=== PATIENT | female | born 1935 | race Caucasian/White ===

== ENCOUNTER → 2016-10-13 | Outpatient (CLI) | payer MEDICARE, OTHER, BC ==
--- NOTE | 2016-10-13 10:30 | REP ---
Right upper quadrant sonography: History: Weight loss. History of bladder carcinoma. Right upper quadrant pain. Nausea. Findings: Scanning through the right upper quadrant of the abdomen demonstrates normal sized slightly thick-walled gallbladder without visible stone or polyp. There is mild tenderness to scanning over the gallbladder. Gallbladder wall measures up to 0.4 cm. Common bile duct is at the upper range of normal measuring 0.7 cm in diameter. No focal liver lesion or intrahepatic biliary ductal dilation is seen. There is mild ascites visible in the right flank. No right renal abnormality is seen. The right kidney measures 9.0 x 5.5 x 4.0 cm. Pancreas shows no abnormality. The pancreatic tail is obscured by abdominal gas. Impression: Mild right-sided ascites seen. Mild thickening and tenderness to scanning of the gallbladder. No stones seen. Otherwise unremarkable. Pancreas is partially obscured by abdominal gas. Consider abdominal and pelvic CT scanning. Signed by Berlin Koo MD 10/13/2016 02:31 P
== END ==
LOC: M RAD 09:11
PROVIDERS: ATTEND Nurse Practitioner Adult Health
DX: R10.11 Right upper quadrant pain (principal); Z85.51 Personal history of malignant neoplasm of bladder; R18.8 Other ascites

== ENCOUNTER → 2016-10-21 | Outpatient (REF) | payer MEDICARE, OTHER ==
[2016-10-21 15:47] LABS: MEAN CORPUSCULAR HEMOGLOBIN 29.6 pg (27.0-33.0); MEAN CORPUSCULAR HGB CONC 32.6 g/dl (32.0-36.5); MEAN CORPUSCULAR VOLUME 90.9 fl (80.0-96.0); RED CELL DISTRIBUTION WIDTH 13.8 % (11.5-14.5); WHITE BLOOD COUNT 14.4 K/mm3 (4.0-10.0)
[2016-10-21 16:06] LABS: BILIRUBIN,TOTAL 0.8 MG/DL (0.2-1.0); CALCIUM LEVEL 8.9 MG/DL (8.8-10.2); CREATININE FOR GFR 2.23 MG/DL (0.55-1.02); GLOMERULAR FILTRATION RATE 22.4 (>32); POTASSIUM SERUM 3.6 MEQ/L (3.5-5.1)
[2016-10-21 16:07] LABS: ALBUMIN 3.2 GM/DL (3.2-5.2); ALBUMIN/GLOBULIN RATIO 1.14 (1.00-1.93)
== END ==
LOC: M SFHCPLAZ 12:56
PROVIDERS: ATTEND Internal Medicine

== ENCOUNTER → 2016-10-22 | Outpatient (CLI) | payer MEDICARE, OTHER, BC ==
[~2016-10-22] MED LIST: GASTROGRAFIN SOLUTION 30ML (Q9963) As Ordered ONE; ISOVUE-370 76% 100ML VIAL (Q9967) As Ordered ONE
--- NOTE | 2016-10-22 14:43 | REP ---
[address] abdomen pelvis without IV contrast. Bowel contrast is utilized. Comparison is the abdominal right upper quadrant ultrasound 10/13/2016. The visualized lung barron are unremarkable. There is ascites surrounding the liver and spleen, in the colic gutters bilaterally and in the pelvis. The unenhanced hepatic parenchyma is homogeneous. The gallbladder is unremarkable. The head, body and tail of the pancreas are unremarkable. Spleen is normal size unremarkable. The adrenals and kidneys are unremarkable except for a 2 cm left renal cyst. The abdominal aorta is unremarkable. There is no retroperitoneal adenopathy. There is no bowel distension or obstruction. Pelvis: There is a calcification in the uterus likely within a degenerating fibroid. The bladder is nondistended and cannot be evaluated. No pelvic adenopathy is identified. There is pelvic ascites as described previously. The pelvic bowel loops are unremarkable except for occasional diverticula in the descending colon and sigmoid colon without CT evidence of diverticulitis. There are no lytic, blastic or destructive skeletal changes. There is multilevel degenerative disc disease in the lower thoracic and lumbar spine. Impression: Abdominal ascites throughout the entire abdomen. No adenopathy or mass. The bladder is nondistended and cannot be evaluated. No evidence of skeletal metastatic disease. Left renal cyst. Signed by Eric Daniels MD 10/22/2016 02:34 P
== END ==
LOC: M RAD 11:43
PROVIDERS: ATTEND Nurse Practitioner Adult Health
DX: R18.8 Other ascites (principal); N28.1 Cyst of kidney, acquired; R93.5 Abnormal findings on diagnostic imaging of other abdominal regions, including retroperitoneum; Z85.51 Personal history of malignant neoplasm of bladder
CPT/HCPCS: 74176; Q9963

== ENCOUNTER → 2016-10-29 | Outpatient (REF) | payer MEDICARE, OTHER ==
[2016-10-29 14:17] LABS: INR 1.13
[2016-10-29 14:24] LABS: ALBUMIN 3.3 GM/DL (3.2-5.2); ALBUMIN/GLOBULIN RATIO 1.1 (1.00-1.93); BILIRUBIN,TOTAL 0.7 MG/DL (0.2-1.0); CALCIUM LEVEL 8.8 MG/DL (8.8-10.2); CREATININE FOR GFR 2.01 MG/DL (0.55-1.02); GLOMERULAR FILTRATION RATE 25.2 (>32); POTASSIUM SERUM 3.5 MEQ/L (3.5-5.1); TOTAL PROTEIN 6.3 GM/DL (6.4-8.2)
== END ==
LOC: M SFHCPLAZ 12:52
PROVIDERS: ATTEND Internal Medicine
DX: Z85.51 Personal history of malignant neoplasm of bladder (principal); I10 Essential (primary) hypertension; I25.10 Atherosclerotic heart disease of native coronary artery without angina pectoris

== ENCOUNTER → 2016-11-02 | Outpatient (CLI) | payer MEDICARE, OTHER ==
[2016-11-02 14:42] LABS: LDH, BODY FLUID 135 U/L (NOT ESTABLISHED)
[2016-11-02 14:44] LABS: RBC ASCITES FLUID < 10 (<10mm3 cells/uL); TNC ASCITES FLUID 367 cells/uL (0-20)
[2016-11-02 14:45] LABS: BF DIFF IF INDICATED? YES (NO)
[2016-11-02 14:47] LABS: ALBUMIN 3.2 GM/DL (3.2-5.2); ALBUMIN/GLOBULIN RATIO 1.14 (1.00-1.93); BILIRUBIN,TOTAL 0.9 MG/DL (0.2-1.0); CALCIUM LEVEL 8.5 MG/DL (8.8-10.2); CREATININE FOR GFR 1.47 MG/DL (0.55-1.02); GLOMERULAR FILTRATION RATE 36.2 (>32); POTASSIUM SERUM 3.7 MEQ/L (3.5-5.1)
--- NOTE | 2016-11-02 15:35 | REP ---
ULTRASOUND GUIDED PARACENTESIS: The procedure was performed under the direct supervision of Dr. Koo. The risks and benefits of the procedure were explained to the patient and informed consent was obtained. The largest pocket of fluid was localized in the right lower quadrant using ultrasound guidance. The skin was prepped and draped in a sterile fashion. 1% lidocaine was used as a local anesthetic. An 8-Tongan mujde-nait-tibk catheter was inserted using trocar technique. 2850 mL of yellow fluid was withdrawn and sent to the lab. The patient tolerated the procedure well and there were no immediate complications. After the appropriate amount of monitored convalescence the patient was discharged from the department. Reviewed by NEETA Henning 11/02/2016 03:41 PEdited and Signed by Berlin Koo MD 11/02/2016 04:52 P
[2016-11-02 16:01] LABS: CC BF DIFF EXAM CYTOCENTRIFUGE
== END ==
LOC: M RADPRO 12:59
PROVIDERS: ATTEND Nurse Practitioner Adult Health
DX: R18.8 Other ascites (principal); Z85.51 Personal history of malignant neoplasm of bladder; Z79.899 Other long term (current) drug therapy; Z79.51 Long term (current) use of inhaled steroids; Z88.8 Allergy status to other drugs, medicaments and biological substances; Z88.1 Allergy status to other antibiotic agents

== ENCOUNTER 2016-11-25 09:24 | Inpatient (IN) | payer MEDICARE, OTHER ==
[~2016-11-25] VITALS: Ht 152.4 cm; Wt 58.5 kg
[2016-11-25] VITALS (24 sets, daily range): BP systolic 46–169; BP diastolic 43–115; O2SAT 97–100
[~2016-11-25 09:24] MED LIST changes: -GASTROGRAFIN SOLUTION 30ML (Q9963) As Ordered ONE; -ISOVUE-370 76% 100ML VIAL (Q9967) As Ordered ONE; +PANTOPRAZOLE 40MG INJ (PROTONIX) (C9113) IV SCH
[2016-11-25] MEDS ORDERED: NS 1,000 ML IV ONE ×3 (09:45→12:30)
[2016-11-25 09:56] LABS: ABG BASE EXCESS -21.4 (-2.0-2.0); ABG PARTIAL PRESSURE O2 497.3 mmHg (75.0-100.0); ABG STANDARD HCO3 9.3 MEQ/L (22.0-26.0); ABG TOTAL CO2 5.4 MEQ/L (23.0-31.0)
[2016-11-25 10:03] LABS: ABG PARTIAL PRESSURE CO2 14.3 mmHg (35.0-45.0); ABG pH (ARTERIAL) 7.158 UNITS (7.350-7.450)
--- NOTE | 2016-11-25 10:14 | REP ---
PORTABLE CHEST: AP supine portable view of the chest is performed and compared to prior study of 10/19/2008. There is no acute infiltrate or pulmonary edema. There is mild elevation of the left hemidiaphragm. Linear opacity peripherally in the left upper hemithorax and another peripheral linear density in the right lung appear to represent skin folds as there do appear to be small vessels extending to the periphery of the right lung. The heart is normal in size. There is some tortuosity of the thoracic aorta. The mediastinal silhouette is unremarkable. Multiple sternal wires and mediastinal clips are present. IMPRESSION: No evidence of acute pulmonary disease. There appears to be bilateral skin folds as discussed above. Signed by Eric Rashid MD 11/25/2016 05:20 P
[2016-11-25] MEDS ORDERED: TRAM50TA2 PO (10:28)
[2016-11-25] MEDS ORDERED: SIMV20TA2 PO (10:28)
[2016-11-25] MEDS ORDERED: MEGA40SU PO (10:28)
[2016-11-25] MEDS ORDERED: METO12TA PO (10:28)
[2016-11-25] MEDS ORDERED: NITR0.4S14 SL (10:28)
[2016-11-25] MEDS ORDERED: PREM.6256 PO (10:30)
[2016-11-25] MEDS ORDERED: OMEP20CA3 PO (10:30)
[2016-11-25] MEDS ORDERED: LISI20TA3 PO (10:30)
[2016-11-25 10:35] LABS: INR 1.66
[2016-11-25] MEDS ORDERED: MIDAZOLAM INJ 2 MG/2 ML VIAL (J2250) IV STA (10:48)
[2016-11-25] MEDS ORDERED: MIDAZOLAM INJ 2 MG/2 ML VIAL (J2250) As Ordered ONE (10:49)
[2016-11-25] MEDS ORDERED: LIDOCAINE 2% MDV 20 ML VIAL As Ordered ONE (10:51)
[2016-11-25] MEDS ORDERED: FLUMAZENIL 0.5 MG/5 ML VIAL As Ordered ONE (10:53)
--- NOTE | 2016-11-25 10:55 | ECGEPIP ---
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
[2016-11-25] MEDS ORDERED: IMIPENEM/CILASTATIN 500 MG in D5W MINI-BAG PLUS 100 ML IV ONE (11:00)
[2016-11-25 11:02] LABS: ALBUMIN 2.8 GM/DL (3.2-5.2); ALKALINE PHOSPHATASE 72 U/L (45-117); ALT/SGPT 35 U/L (12-78); AMYLASE 45 U/L (25-115); ANION GAP 26 MEQ/L (8-16); AST/SGOT 82 U/L (15-37); BILIRUBIN,DIRECT 0.7 MG/DL (0.0-0.2); BILIRUBIN,TOTAL 1.3 MG/DL (0.2-1.0); BLOOD UREA NITROGEN 55 MG/DL (7-18); CALCIUM LEVEL 8.8 MG/DL (8.8-10.2); CARBON DIOXIDE LEVEL 12 MEQ/L (21-32); CHLORIDE LEVEL 98 MEQ/L (98-107); CREATININE FOR GFR 2.35 MG/DL (0.55-1.02); GLOMERULAR FILTRATION RATE 21.1 (>32); GLUCOSE, FASTING 113 MG/DL (83-110); SODIUM LEVEL 136 MEQ/L (136-145); TOTAL PROTEIN 5.9 GM/DL (6.4-8.2)
[2016-11-25 11:05] LABS: POTASSIUM SERUM 5.4 MEQ/L (3.5-5.1)
[2016-11-25] MEDS ORDERED: ISOVUE-370 76% 100ML VIAL (Q9967) As Ordered ONE (11:05)
[2016-11-25 11:14] LABS: BASO # 0.1 K/mm3 (0.0-0.2); BASO % 0.5 % (0.0-1.0); EOS % 0.2 % (0.0-3.0); LARGE UNSTAINED CELL # 0.2 K/mm3 (0.0-0.4); LARGE UNSTAINED CELL % 0.9 % (0.0-4.0); LYMPH # 2.7 K/mm3 (1.5-4.5); LYMPH % 15.4 % (24.0-44.0); MEAN CORPUSCULAR HEMOGLOBIN 30.1 pg (27.0-33.0); MEAN CORPUSCULAR HGB CONC 30.7 g/dl (32.0-36.5); MEAN CORPUSCULAR VOLUME 98.1 fl (80.0-96.0); MONO # 0.6 K/mm3 (0.0-0.8); MONO % 3.4 % (0.0-5.0); NEUTROPHILS # 13.9 K/mm3 (1.8-7.7); NEUTROPHILS % 79.5 % (36.0-66.0); PLATELET COUNT, AUTOMATED 139 k/mm3 (150-450); WHITE BLOOD COUNT 17.5 K/mm3 (4.0-10.0)
--- NOTE | 2016-11-25 11:30 | REP ---
PORTABLE CHEST X-RAY: Single AP view. HISTORY: Post central line. Comparison study is from 09:47 a.m. earlier on this date. FINDINGS: A right subclavian line has been inserted with its tip in the region of the right atrium. A right apical chest tube is inserted in good position. There is no discernible pneumothorax. There is a linear opacity over the right scapula at the right upper chest suggestive of a skin fold. No infiltrate is seen. No pleural effusion is noted on either side. The patient status post prior median sternotomy. Heart size is normal. Left lung is clear. IMPRESSION: Right internal jugular line in the expected location of the right atrium. A right apical chest tube is seen in place. No visible pneumothorax. Signed by Berlin Koo MD 11/25/2016 02:48 P
--- NOTE | 2016-11-25 11:45 | REP ---
Limited abdominal sonography: History: Abdominal pain. Urgent scan performed at bedside. Evaluate aorta. Limited study. Findings: A small amount of ascites is visible. Transverse images appear to show a normal caliber aorta. Exam quality is technically very limited. Signed by Berlin Koo MD 11/25/2016 02:48 P
--- NOTE | 2016-11-25 12:29 | REP ---
CT ANGIOGRAM OF THE CHEST: TECHNIQUE: Axial contrast enhanced images from the thoracic inlet to the upper abdomen using 100 mL Isovue 370 intravenous contrast material with multiplanar reformations. Filling defects are seen in the central pulmonary arteries supplying the lower lobes bilaterally compatible with bilateral pulmonary emboli. There also appears to be pulmonary embolus in the lingular segmental pulmonary arterial branch. There is no thoracic aortic aneurysm or dissection. No adenopathy is seen. The heart is not enlarged. There is no pleural or pericardial effusion. There is a right chest tube seen with a tiny right pneumothorax. Scattered interstitial fibrosis is seen diffusely bilaterally. Focal pleural thickening is seen in the left lower lobe posterolaterally. Two tiny left lower lobe nodular opacities are seen inferiorly along the diaphragm measuring 5 mm in diameter. There is a tiny calcified granuloma in the right lower lobe. Inferiorly in the right lower lobe are three enrique ill-defined nodular opacities about 4 mm in diameter. IMPRESSION: Bilateral lower lobe pulmonary emboli. Right chest tube in place with a tiny right pneumothorax. Signed by Eric Rashid MD 11/25/2016 05:22 P
[2016-11-25] MEDS ORDERED: HEPARIN 25,000 UNITS/250 ML D5W BAG (100 UNITS/ML) IV ONE (12:45)
[2016-11-25] MEDS ORDERED: HEPARIN SOD (PORCINE) 5000 UNITS/ML VIAL IV ONE (12:45)
[2016-11-25] MEDS ORDERED: DIGOXIN INJ 0.5 MG/2 ML AMP (J1160) IV ONE (13:15)
[2016-11-25] MEDS ORDERED: ASPI1TAB PO (13:19)
[2016-11-25] MEDS ORDERED: VITA500T88 PO (13:20)
[2016-11-25] MEDS ORDERED: VITMTA PO (13:20)
[2016-11-25] MEDS ORDERED: CALCTAB68 PO (13:20)
--- NOTE | 2016-11-25 13:21 | REP ---
CT ABDOMEN AND PELVIS WITH IV CONTRAST: TECHNIQUE: Axial contrast enhanced images from the lung bases to the pubic symphysis using 100 mL Isovue 370 intravenous contrast material with multiplanar reformations. There is moderate atherosclerotic calcification of the abdominal aorta without aneurysm. There is a centrally located mass which encases the superior mesenteric artery. The mass measures 2.2 cm in diameter. There is significant narrowing of both celiac and superior mesenteric arteries. The liver demonstrates a hypodense nodular area at the dome adjacent to the inferior vena cava measuring 1.8 cm in diameter. More inferiorly there is a small enhancing nodule measuring 7 mm in diameter. Spleen appears unremarkable. Adrenal glands appear unremarkable. No definite pancreatic mass is seen. Wedge shaped areas of nonenhancement are seen diffusely throughout both kidneys compatible with bilateral pyelonephritis. There also appears to be a small cyst in the upper pole of the right kidney and there is a cyst in the lower pole of the left kidney. There is no hydronephrosis bilaterally. Large amount of ascites is seen diffusely. I see no definite pelvic mass. Urinary bladder is mildly distended and grossly unremarkable. In the region of the proximal right superficial femoral artery, there is free extravasation of contrast material compatible with arterial disruption from a femoral artery puncture. There is adjacent hematoma in the musculature with superficial soft tissue edema. IMPRESSION: Large amount of ascites. Central retroperitoneal mass just inferior to the pancreas and anterior to the abdominal aorta measuring 2.2 cm in diameter, encasing the superior mesenteric artery and causing significant narrowing. There is also narrowing of the celiac artery. There are two nodular structures in the liver as discussed above which are nonspecific. Findings compatible with bilateral pyelonephritis. Evidence of disruption of the right common femoral artery or proximal superficial femoral artery status post arterial puncture at that location. There is mild extravasation of contrast. There is hematoma involving the adjacent musculature and superficial soft tissue edema. Signed by Eric Rashid MD 11/25/2016 05:22 P
[2016-11-25 13:23] LABS: FIBRINOGEN 78 MG/DL (221-452)
--- NOTE | 2016-11-25 13:32 | RO ---
DATE OF PROCEDURE: 11/25/2016 PREPROCEDURE DIAGNOSIS: Pneumothorax prior to insertion of right subclavian line. POSTPROCEDURE DIAGNOSIS: Pneumothorax prior to insertion of right subclavian line. PROCEDURE: Insertion of right anterior chest tube. SURGEON: Dr. Jamison Machado ELECTRICIAN CONSTRUCTOR SUPERVISOR: ANESTHESIA: PROCEDURE: Under satisfactory moderate sedation achieved with 2 mg of Versed, the patient was prepped and draped in the usual sterile fashion. The skin and subcutaneous tissue and pleura was infiltrated with 1% Xylocaine over the second rib in the first intercostal space. Incision was made and a tunnel was created in the chest without difficulty. A #20 chest tube was placed without difficulty. It was secured to the chest wall with a #2 Tevdek suture. The chest tube was connected to a Pleur-evac. The patient tolerated the procedure well and a chest x-ray is pending for both the central line and the chest tube.
[2016-11-25] MEDS ORDERED: NS 1,000 ML IV SCH (13:36)
--- NOTE | 2016-11-25 13:38 | RO ---
DATE OF PROCEDURE: 11/25/2016 PREPROCEDURE DIAGNOSES: Hypotension, need for vascular access. POSTPROCEDURE DIAGNOSES: Hypotension, need for vascular access. PROCEDURE: Insertion of a right subclavian central line. SURGEON: Jamison Machado MD RECORDS ASSISTANT: ANESTHESIA: DESCRIPTION OF PROCEDURE: The patient's right infraclavicular fossa was prepped and draped in the usual sterile fashion. The vein was found on the first pass after infiltrating the infraclavicular fossa with 1% Xylocaine. The wire was passed, and the tract was dilated. A triple-lumen catheter was then placed by Seldinger technique without difficulty. The catheter was aspirated and flushed without difficulty and secured to chest wall with two #3-0 silk sutures. The patient tolerated the procedure well, and a chest x-ray is pending.
[2016-11-25] MEDS ORDERED: HEPARIN DRIP 25,000 UNITS in APPROPRIATE DILUENT 1 EA IV SCH (13:41)
[2016-11-25] MEDS ORDERED: ONDANSETRON 4MG/2ML VIAL (J2405) IV PRN (13:45)
[2016-11-25] MEDS ORDERED: ACETAMINOPHEN TAB 650MG DOSE (2X325MG) PO PRN (13:45)
[2016-11-25] MEDS ORDERED: MEROPENEM INJ 2 GM in NS 100 ML IV SCH (13:45)
[2016-11-25] MEDS ORDERED: VANCOMYCIN HCL 1,000 MG, VIAL MATE ADAPTER 1 EACH in D5W 250 ML IV SCH (13:45)
[2016-11-25 14:44] LABS: DIFF SLIDE NUMBER 229; MEAN CORPUSCULAR HEMOGLOBIN 30.8 pg (27.0-33.0); MEAN CORPUSCULAR HGB CONC 31.3 g/dl (32.0-36.5); MEAN CORPUSCULAR VOLUME 98.6 fl (80.0-96.0); PLATELET COUNT, AUTOMATED 121 k/mm3 (150-450); RED CELL DISTRIBUTION WIDTH 15.6 % (11.5-14.5); WHITE BLOOD COUNT 26.1 K/mm3 (4.0-10.0)
--- NOTE | 2016-11-25 14:46 | REP ---
UNILATERAL LEFT LOWER EXTREMITY DUPLEX VEINS: HISTORY: Swelling. The examination is limited. Filling defects consistent with thrombus are present in the popliteal , femoral and common femoral veins. There is no occlusion. There is poor augmentation. IMPRESSION: There is nonocclusive deep venous thrombosis in the popliteal, femoral and common femoral veins. Signed by Dann Zamora MD 11/25/2016 02:52 P
[2016-11-25] MEDS ORDERED: HEPARIN SOD (PORCINE) 5000 UNITS/ML VIAL IV PRN (15:00)
[2016-11-25] MEDS ORDERED: NOREPINEPHRINE BITARTRATE 8 MG in D5W 500 ML IV SCH (15:00)
[2016-11-25 15:03] LABS: ALBUMIN 1.8 GM/DL (3.2-5.2); ALBUMIN/GLOBULIN RATIO 0.78 (1.00-1.93); BILIRUBIN,TOTAL 1.3 MG/DL (0.2-1.0); CALCIUM LEVEL 6.8 MG/DL (8.8-10.2); CREATININE FOR GFR 1.94 MG/DL (0.55-1.02); GLOMERULAR FILTRATION RATE 26.3 (>32); POTASSIUM SERUM 4.8 MEQ/L (3.5-5.1); TOTAL PROTEIN 4.1 GM/DL (6.4-8.2)
[2016-11-25] MEDS ORDERED: NOREPINEPHRINE 4 MG/4 ML AMP As Ordered ONE (15:06)
[2016-11-25] MEDS ORDERED: ETOMIDATE INJ 20MG/10ML VIAL As Ordered ONE (15:09)
[2016-11-25] MEDS ORDERED: SUCCINYLCHOLINE INJ 200 MG/10 ML VIAL (J0330) As Ordered ONE (15:09)
[2016-11-25] MEDS ORDERED: NOREPINEPHRINE BITARTRATE 16 MG in D5W 500 ML IV SCH (15:15)
[2016-11-25] MEDS ORDERED: VANCOMYCIN INTERMITTENT/PULSE DOSING BY CLINICAL PHARMACIST PER DOSING PROTOCOL XX SCH (15:30)
[2016-11-25] MEDS ORDERED: VASOPRESSIN INJ 20 UNITS in NS 500 ML IV SCH (15:30)
[2016-11-25] MEDS ORDERED: SODIUM BICARBONATE 8.4% INJ 50 ML SYRINGE IV STA (15:30)
[2016-11-25] MEDS ORDERED: REFRIGERATOR IV KEYS XX PRN ×2 (15:30→15:45)
[2016-11-25 15:31] LABS: ABG BASE EXCESS -24.2 (-2.0-2.0); ABG HCO3 4.9 MEQ/L (22.0-26.0); ABG PARTIAL PRESSURE O2 365.1 mmHg (75.0-100.0); ABG STANDARD HCO3 6.8 MEQ/L (22.0-26.0); ABG TOTAL CO2 5.5 MEQ/L (23.0-31.0)
[2016-11-25 15:34] LABS: ABG PARTIAL PRESSURE CO2 19.5 mmHg (35.0-45.0); ABG pH (ARTERIAL) 7.022 UNITS (7.350-7.450)
[2016-11-25] MEDS ORDERED: SODIUM BICARBONATE 8.4% INJ 50 ML SYRINGE As Ordered ONE (15:34)
[2016-11-25] MEDS ORDERED: VASOPRESSIN INJ 20 UNITS/ML VIAL As Ordered ONE (15:37)
[2016-11-25 15:42] LABS: CENTRAL VEN BASE EXCESS -23.8; CENTRAL VEN PARTL PRESSURE CO2 32.9 mmHg; CENTRAL VEN PARTL PRESSURE O2 82.5 mmHg; CENTRAL VEN STANDARD HCO3 6.7 MEQ/L; CENTRAL VEN TOTAL CO2 7.9 MEQ/L; CENTRAL VENOUS HCO3 6.9 MEQ/L; CENTRAL VENOUS PH 6.938 UNITS
[2016-11-25] MEDS: SODIUM BICARBONATE 150 MEQ in D5W 1,000 ML IV SCH (15:45)
[2016-11-25 15:55] LABS: BANDS 8 % (< 11)
[2016-11-25 15:58] LABS: ACANTHOCYTES 1+; ANISOCYTOSIS 1+; HYPOCHROMASIA 1+; OVALOCYTES 1+; POLYCHROMASIA 1+
[2016-11-25] MEDS ORDERED: MIDAZOLAM HCL 100 MG in D5W 80 ML IV SCH (16:00)
[2016-11-25] MEDS ORDERED: VANCOMYCIN HCL 500 MG in D5W MINI-BAG PLUS 100 ML IV ONE (16:00)
[2016-11-25] MEDS ORDERED: MORPHINE 2 MG/ML 1ML SYRINGE IV PRN (16:00)
[2016-11-25] MEDS ORDERED: ETOMIDATE INJ 20MG/10ML VIAL IV STA (16:03)
[2016-11-25] MEDS ORDERED: SUCCINYLCHOLINE INJ 200 MG/10 ML VIAL (J0330) IV STA (16:03)
--- NOTE | 2016-11-25 16:57 | REP ---
PORTABLE CHEST: AP portable view of the chest is performed and compared to prior study of earlier today. There is an endotracheal tube present and the tip is 1.5 cm above the malka. Right central venous catheter is seen with the tip in the right atrium. There is a right chest tube. There is no pneumothorax. There is no acute infiltrate. There is mild elevation of the left hemidiaphragm. The heart is not enlarged. There are multiple sternal wires and mediastinal clips present. IMPRESSION: Placement of endotracheal tube and right central venous catheter as above. No pneumothorax. Signed by Eric Rashid MD 11/25/2016 05:25 P
[2016-11-25] MEDS ORDERED: VANCOMYCIN HCL 750 MG, VIAL MATE ADAPTER 1 EACH in D5W 250 ML IV ONE (17:00)
[2016-11-25] MEDS: MIDAZOLAM INJ 2 MG/2 ML VIAL (J2250) IV PRN ×3 (17:22→23:23)
[2016-11-25] MEDS: MEROPENEM INJ 500 MG in D5W MINI-BAG PLUS 100 ML IV SCH (17:23)
[2016-11-25 18:07] LABS: ABG BASE EXCESS -21.1 (-2.0-2.0); ABG HCO3 5.8 MEQ/L (22.0-26.0); ABG PARTIAL PRESSURE O2 295.1 mmHg (75.0-100.0); ABG STANDARD HCO3 9.2 MEQ/L (22.0-26.0); ABG TOTAL CO2 6.4 MEQ/L (23.0-31.0); ABG pH (ARTERIAL) 7.141 UNITS (7.350-7.450)
[2016-11-25 18:08] LABS: ABG PARTIAL PRESSURE CO2 17.5 mmHg (35.0-45.0)
[2016-11-25 18:17] LABS: MEAN CORPUSCULAR HEMOGLOBIN 30.7 pg (27.0-33.0); MEAN CORPUSCULAR HGB CONC 31.5 g/dl (32.0-36.5); MEAN CORPUSCULAR VOLUME 97.4 fl (80.0-96.0); RED CELL DISTRIBUTION WIDTH 14.5 % (11.5-14.5); WHITE BLOOD COUNT 27.4 K/mm3 (4.0-10.0)
[2016-11-25 18:21] LABS: INR 3.14
[2016-11-25 18:54] LABS: CALCIUM LEVEL 6.5 MG/DL (8.8-10.2); CREATININE FOR GFR 2.07 MG/DL (0.55-1.02); GLOMERULAR FILTRATION RATE 24.4 (>32); MAGNESIUM LEVEL 2.4 MG/DL (1.8-2.4)
[2016-11-25 18:59] LABS: POTASSIUM SERUM 5.3 MEQ/L (3.5-5.1)
--- NOTE | 2016-11-25 20:00 | HPE ---
DATE OF ADMISSION: 11/25/2016 PRIMARY CARE PROVIDER : Dr. Azeem Fuentes and JEFFREY Ratliff CHIEF COMPLAINT: She was found on the floor. SUMMARY OF HER PRESENTATION: This is an 81-year-old female who has been very sleepy for a couple of days at home. No fever. She has chronic cough. No complaints of abdominal pain. She has had vomiting for about one week. Went to bed around 9:00 p.m. Her joined her at 10:00 p.m. Next he saw her was this morning when she was found on the floor in the living room where she was down and could not get up. She had decreased mental status and was brought to the hospital for evaluation. In the emergency department , she was found to be profoundly hypotensive. Workup was begun, including fluid resuscitation, much imaging. She was noted to have pneumothorax on the right. Chest tube was placed. Central line was placed. Blood pressure improved somewhat. She went on to become tachycardic, atrial fibrillation with rapid ventricular rate. She was given empiric antibiotics and I was called for admission. PAST MEDICAL HISTORY: Notable for: 1. Bladder cancer. 2. Hypertension. 3. Hyperlipidemia. 4. Coronary artery disease. 5. 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 PAST SURGICAL HISTORY: Notable for: 1. Colonoscopy in 2001. 2. Bladder tumor removal via cystoscopy in 2007. 3. Coronary artery bypass graft (CABG) with bilateral saphenous harvest in 2007. 4. Carcinoma removal from the left side of the nose in 2012. 5. Spot removed from the left side of the face under eye in 2015. 6. Paracentesis on 11/02/2016. FAMILY HISTORY: Known for two healthy sons who are socially remote from their parents. SOCIAL HISTORY: She last smoked over 10 years ago. She does not use alcohol. 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 ALLERGIES: She has a listed allergy to CEPHALOSPORIN. MEDICATIONS: At home are listed as: - aspirin 81 mg daily - calcium and vitamin D supplement - metoprolol 25 mg twice a day - multivitamin daily - sublingual nitroglycerin - omeprazole 20 mg daily as needed - tramadol 50 mg every 4 hours as needed for pain - vitamin C supplement - Prempro twice weekly REVIEW OF SYSTEMS: Exceedingly limited. She is not complaining of any headaches. No neck pain. She is short of breath and has pain associated with the chest tube. She is not complaining of any abdominal pain or discomfort. She is unaware that her left leg was swollen. PHYSICAL EXAMINATION: During my evaluation, her temperature was most recently at 97, although she had been noted to be cool at the time of her arrival, heart rate 135, blood pressure 115/62, 92% on supplemental oxygen, which seems to be 100% nonrebreather. She is awake, answering simple commands and pulling the oxygen mask off her face. Head is normocephalic. Sinuses nontender. She has no tenderness to her scalp. There is no tenderness to her cervical spine. No tenderness over her shoulders, elbows , wrists, hips, pelvis, knees, or ankles. Breathing is symmetrically diminished. She is tachypneic. She is speaking in short sentences. There is no accessory muscle use. Heart is in a regular rate and rhythm, tachycardic. I am unable to palpate the radial pulses bilaterally. Capillary refill is 3 seconds. Abdomen is soft and nontender. I actually could not appreciate a fluid wave, although fluid is notable on abdominal CT. Left lower extremity is grossly larger than the right. Emergency room staff was able to find a pulse in both feet. She does appear to be moving all four extremities. Facies are symmetrical. I am not able to assess mood and affect. White cell count is 17.5, hemoglobin 12.1, and platelets of 139. Sodium 136, potassium 5.4, chloride 98, carbon dioxide 12, BUN 55, creatinine 2.36, glucose of 113, lactic acid 13.4 and repeat is pending. Total bilirubin 1.3, direct bilirubin is 0.7, AST is 82, CK 188, troponin I less than 0.02, C-reactive protein is 4.29, BNP is 660, total protein 5.9, albumin 2.8, amylase is 45. INR initially 1.66, repeat is 2.5. Blood gas initially was 7.15, 14, 497, and 5. Blood cultures pending. Urine culture pending. Influenza swab negative. CT angiogram of the chest showed bilateral lower lobe pulmonary emboli, right chest tube and tiny pneumothorax. CT of the abdomen and pelvis shows ascites, central retroperitoneal mass measuring 2.2 cm in diameter and encasing the superior mesenteric artery with narrowing of the celiac artery as well and possible bilateral pyelonephritis. Initial chest tube showed pneumothorax. EKG shows atrial fibrillation with RVR. ASSESSMENT: This is an 81-year-old found down, most likely with severe sepsis with an element of hypothermia, disseminated intravascular coagulation, profound hypotension, underlying infectious etiology is considered, which would include possible bilateral pyelonephritis or spontaneous bacterial peritonitis. The patient will require a two midnight hospital stay in intensive care unit (ICU). PLAN: 1. Respiratory. The patient is profoundly hypoxic with a pulmonary embolism and is not a candidate for thrombolytic therapy as she has had significant bleeding from puncture sites and currently has a sandbag in her left femoral region and has blood oozing from her subclavian site. Repeat ABG is pending. I suspect that she may need noninvasive positive pressure ventilation or perhaps even intubation. I was able to discuss this with her briefly and with her . She has a history of previous do not resuscitate but is currently FULL CODE. I have documentation of a discussion with Dr. Fuentes recently in his office that occurred on 11/23/2016. She had planned to discuss her advanced directives with her criminal defense attorney on 11/26/2016. 2. Hypotension. The patient has suspected severe sepsis. She has received 3 liters of fluid at this point. I am awaiting a CVP upon her arrival in the intensive care unit (ICU) and we will provide further fluid resuscitation or start Levophed as deemed clinically indicated. The patient has profound lactic acidosis. Repeat lactate levels are still pending. 3. Infectious disease. The patient has possible bilateral pyelonephritis or spontaneous bacterial peritonitis or other occult infection. The patient is started on broad spectrum antibiotics, including ertapenem and vancomycin. 4. The patient has pulmonary embolism and left lower extremity deep vein thrombosis (DVT). This is in the setting of presumed disseminated intravascular coagulation. This case was discussed with the critical care doctor and we will look to treat the underlying cause of the DIC. 5. Cardiovascular. The patient has a history of coronary artery disease and atrial fibrillation with RVR. Uncontrolled heart rate is most likely related to current illness. The patient did receive a dose of digoxin in the emergency department. We will continue fluid resuscitation and manage as indicated. I have ordered repeat cardiac markers. I would not be surprised if troponin became elevated. 6. Oncologic. The patient has known metastatic adenocarcinoma and has been pursuing further workup. Location of the adenocarcinoma is concerning for the possibility of it involving bowel and causing bowel ischemia. 7. The patient has a history of hypertension, which is certainly not currently an issue. 8. The patient likely has an element of acute renal failure with a baseline creatinine that looks to be between 1 and 1.5, it was 2.3 at arrival. She had received a dose of IV contrast. I would anticipate that this will worsen during her stay and I asked that a Zaragoza catheter be placed. 9. Social. The patient's is at bedside who is hard of hearing. She has consented for blood should that become necessary. Apparently, according to a friend at bedside, they are not in much contact with their adult sons at this point. Patient has poor prognosis. I did discuss this case in general with the patient's primary care provider, Dr. Fuentes. JUDY
--- NOTE | 2016-11-25 20:07 | CCN ---
DATE: 11/25/2016 START TIME: 1531 STOP TIME: 1608 I was called to assist in the management of Stephanie Biswas here in the intensive care unit. The patient has been examined and charts reviewed. I have reviewed not only her laboratory but her radiographic data and her outpatient notes. I spoke in length with both Dr. Beauchamp as well as Dr. Blanco regarding her status. In essence, this is an 81-year-old female who has had significant difficulties with weight loss, dysphagia, and ascites over the last several months. She recently had an outpatient paracentesis which proved this to be malignant ascites on the basis of adenocarcinoma of unknown primary, most likely felt to be gastrointestinal (GI) origin. The patient has remained a full code. She was brought to the emergency room (ER) today by emergency medical services (EMS), having been found down at home by her . She was markedly short of breath. Her is not sure how long she was down at home. She was initially mildly hypotensive. Her oxygenation was always reasonable. She had a profound metabolic acidosis with an initial pH of 7.158 with a pCO2 of 14.3 and a pO2 of 497.3. She complained of a swollen left lower extremity and it has been that way for some time. Doppler proves her to have a sizable left deep vein thrombosis (DVT). CT angiogram confirms bilateral pulmonary emboli. Attempt was reportedly made of her right femoral artery in the ER without success. She has a large hematoma of the right groin. Question was raised of a right pneumothorax. Chest tube was placed by Dr. Machado and then a right subclavian central venous pressure (CVP) monitor was placed. CVPs have been around 15. After arrival in the intensive care unit, she had a marked decline in her mental status and was intubated. Most recent arterial blood gas done on assist control of 20, tidal volume 300, positive end-expiratory pressure (PEEP) of 5, shows pH of 7.022, pCO2 of 19.5, and a pO2 of 365.1. Review of the CT of her abdomen shows a very large amount of ascites. There looks to be, at least to my eye, an obstructing mass at the gastroesophageal (GE) junction with complete obstruction of the esophagus as it is completely filled with fluid or food its entire length to the larynx. PHYSICAL EXAMINATION: On examination, she is currently on max dose of both Levophed and vasopressin. Blood pressure is 100 systolic, heart rate is between 95 and 110. There is significant ST-T wave abnormalities noted. She is generally pale in appearance, minimally responsive. Mottled below the knees and upper extremities are dusky bilaterally below the elbows. Neurologically, she is minimally responsive. Pupils do react somewhat. Sclerae are clear. No obvious jugular venous distention (JVD). Oroendotracheal tube is in place. Chest shows a right anterior chest tube and right subclavian CVP. Breath sound intensity is reasonably bilaterally. No wheeze or rhonchi. No obvious rub. Cardiac examination is tachycardic. Peripheral pulses markedly diminished peripherally. She has a right groin hematoma but an easily palpable pulse in the left femoral artery. No obvious gout. She has a well-healed median sternotomy scar. Abdomen shows clearcut ascites. Bowel sounds are diminished. Extremities show her mottling as outlined above. Extremities are generally cool. Neurologically, she is essentially only minimally responsive. The most pressing problems requiring my immediate presence at the bedside: 1. Metabolic acidosis, profound, likely multifactorial. 2. Deep vein thrombosis (DVT)/pulmonary emboli (PE). 3. 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 4. Coronary artery disease, status post bypass grafting. Lactate done initially was quite elevated at 13.4, repeat down to 9.4. Concern was raised over whether or not this was a septic etiology but my suspicion is it is more likely related to her hemodynamic collapse. High likelyhood that this represents bowel. Clearly she is not a surgical candidate. White blood cell count initially 17.5, 79.5% segmented cells, no bands, hemoglobin initially 12.1, platelet count 139,000. Repeat now shows a white count of 26.1, hemoglobin down to 8.7, platelet count remains 121,000, 84% segmented cells, and 8 bands. Potassium 4.8, chloride 107, CO2 of 9, blood urea nitrogen (BUN) 50, creatinine 1.94, calcium 6.8, bilirubin elevated at 1.3, transaminases elevated at 393 and 171 respectively of aspartate aminotransferase (AST)/alanine aminotransferase (ALT). At this point, I am told that further discussion with family has been had and she remains a full code for now. At this point, she is maxed out on two separate pressors. I do not see a role for adding a third pressor at this point. Ventilator adjustments have been made. She is getting transfused for her low hemoglobin. She is on heparin per the primary service and I believe that this is perfectly appropriate given her clot burden. She is on empiric antimicrobials as well. At this point, there is a very high likelihood that she will not survive this admission. Should she, the decision will need to be made regarding any therapy available for her stage IV adenocarcinoma. I am concerned as well regarding the appearance of her ST-T waves on the monitor. ECG is ordered through primary service. Certainly, I would try to avoid dopamine as an additional pressor in view of this. At this point, as outlined above, she is quite critically ill and chance of survival is minimal. I left the bedside at 1608 hours. 37 minutes of critical care time delivered at the bedside, not including procedures. JUDY
[2016-11-25] MEDS: SIMVASTATIN 20 MG TAB PO SCH (21:00)
[2016-11-25] MEDS: CHLORHEXIDINE GLUCONATE 0.12 % 15ML UDC (PERIDEX ORAL RINSE) MT SCH (21:26)
[2016-11-25 22:38] LABS: INR 2.5; MEAN CORPUSCULAR HEMOGLOBIN 31.1 pg (27.0-33.0); MEAN CORPUSCULAR HGB CONC 32.3 g/dl (32.0-36.5); MEAN CORPUSCULAR VOLUME 96.3 fl (80.0-96.0); RED CELL DISTRIBUTION WIDTH 14.6 % (11.5-14.5); WHITE BLOOD COUNT 26.2 K/mm3 (4.0-10.0)
[2016-11-25 22:54] LABS: CALCIUM LEVEL 6.3 MG/DL (8.8-10.2); CREATININE FOR GFR 2.29 MG/DL (0.55-1.02); GLOMERULAR FILTRATION RATE 21.7 (>32); POTASSIUM SERUM 5.1 MEQ/L (3.5-5.1)
[2016-11-26] VITALS (30 sets, daily range): BP systolic 77–156; BP diastolic 34–75; O2SAT 99–100
[2016-11-26] MEDS ORDERED: GLUCAGON FOR INJ 1 MG VIAL (J1610) SC PRN (00:15)
[2016-11-26] MEDS ORDERED: GLUCOSE 4 GM CHEW TABLET PO PRN (00:15)
[2016-11-26] MEDS ORDERED: NS 1,000 ML in APPROPRIATE DILUENT 1 EA IV ONE (00:30)
[2016-11-26] MEDS: HumaLOG INSULIN (NovoLOG) PER UNIT SC SCH ×4 (00:38→18:08)
[2016-11-26] MEDS: SODIUM BICARBONATE 150 MEQ in D5W 1,000 ML IV SCH (00:38)
[2016-11-26] MEDS: MIDAZOLAM INJ 2 MG/2 ML VIAL (J2250) IV PRN ×4 (02:11→07:42)
[2016-11-26] MEDS: MEROPENEM INJ 500 MG in D5W MINI-BAG PLUS 100 ML IV SCH ×2 (02:11→15:00)
[2016-11-26 02:45] LABS: INR 2.04
[2016-11-26 02:49] LABS: CALCIUM LEVEL 6.3 MG/DL (8.8-10.2); CREATININE FOR GFR 2.39 MG/DL (0.55-1.02); GLOMERULAR FILTRATION RATE 20.7 (>32); POTASSIUM SERUM 4.1 MEQ/L (3.5-5.1)
[2016-11-26] MEDS ORDERED: NOREPINEPHRINE BITARTRATE 8 MG in D5W 500 ML IV SCH ×2 (03:00→06:30)
[2016-11-26] MEDS ORDERED: DIGOXIN INJ 0.5 MG/2 ML AMP (J1160) IV STA (03:05)
[2016-11-26] MEDS ORDERED: VASOPRESSIN INJ 20 UNITS in NS 500 ML IV SCH (03:30)
[2016-11-26 04:39] LABS: MEAN CORPUSCULAR HEMOGLOBIN 30.6 pg (27.0-33.0); MEAN CORPUSCULAR HGB CONC 33.2 g/dl (32.0-36.5); RED CELL DISTRIBUTION WIDTH 15.1 % (11.5-14.5); WHITE BLOOD COUNT 15.3 K/mm3 (4.0-10.0)
[2016-11-26 06:02] LABS: ABG BASE EXCESS -4.5 (-2.0-2.0); ABG HCO3 15.7 MEQ/L (22.0-26.0); ABG PARTIAL PRESSURE O2 138.7 mmHg (75.0-100.0); ABG STANDARD HCO3 20.8 MEQ/L (22.0-26.0); ABG TOTAL CO2 16.3 MEQ/L (23.0-31.0); ABG pH (ARTERIAL) 7.577 UNITS (7.350-7.450)
[2016-11-26 06:04] LABS: ABG PARTIAL PRESSURE CO2 17.3 mmHg (35.0-45.0)
[2016-11-26 06:07] LABS: MEAN CORPUSCULAR HEMOGLOBIN 30.6 pg (27.0-33.0); MEAN CORPUSCULAR HGB CONC 33.8 g/dl (32.0-36.5); MEAN CORPUSCULAR VOLUME 90.5 fl (80.0-96.0); RED CELL DISTRIBUTION WIDTH 15.1 % (11.5-14.5); WHITE BLOOD COUNT 18.2 K/mm3 (4.0-10.0)
[2016-11-26 06:10] LABS: INR 1.91
[2016-11-26 06:40] LABS: ALBUMIN 2.2 GM/DL (3.2-5.2); ALBUMIN/GLOBULIN RATIO 1.22 (1.00-1.93); CALCIUM LEVEL 6.1 MG/DL (8.8-10.2); CREATININE FOR GFR 2.52 MG/DL (0.55-1.02); GLOMERULAR FILTRATION RATE 19.4 (>32)
[2016-11-26] MEDS ORDERED: MIDAZOLAM HCL 100 MG in D5W 80 ML IV SCH (06:40)
[2016-11-26] MEDS ORDERED: REFRIGERATOR IV KEYS XX PRN (06:45)
[2016-11-26] MEDS: LR 1,000 ML IV SCH ×2 (06:54→15:00)
--- NOTE | 2016-11-26 08:51 | RO ---
DATE OF PROCEDURE: 11/25/2016 PREPROCEDURE DIAGNOSIS: Severe metabolic acidosis with altered mental status. POSTPROCEDURE DIAGNOSIS: Severe metabolic acidosis with altered mental status. PHYSICIAN PERFORMING PROCEDURE: Dr. Shikha Beauchamp EVP AND CHIEF OPERATING OFFICER: Dr. Torres Blanco SUPERVISING PHYSICIAN: Dr. Sridhar Curtis PROCEDURE PERFORMED: Endotracheal intubation. SEDATION: 20 mg of IV etomidate with 35 of succinylcholine. ESTIMATED BLOOD LOSS: Minimal. DESCRIPTION OF PROCEDURE: The patient was placed in supine position. She was bagged with Ambu-bag. Suction was ready given etomidate and succinylcholine, only half dose given, evidence of hyperkalemia. Subsequently, video laryngoscope was used. The patient's epiglottis and vocal cords were visualized. Endotracheal tube was inserted. CO2 detector was used to visualize color change with bilateral respiratory sounds. The patient was subsequently connected to the ventilator. X-ray was obtained for confirmation. The patient tolerated the procedure with no complications.
[2016-11-26] MEDS: CHLORHEXIDINE GLUCONATE 0.12 % 15ML UDC (PERIDEX ORAL RINSE) MT SCH ×2 (08:59→20:05)
[2016-11-26] MEDS: PANTOPRAZOLE 40MG INJ (PROTONIX) (C9113) IV SCH ×2 (08:59→20:05)
--- NOTE | 2016-11-26 09:14 | REP ---
PORTABLE CHEST: AP portable view of the chest is performed. Right chest tube remains in place. There is no pneumothorax. Right central venous catheter and endotracheal tube are again noted, unchanged. No new infiltrates are seen. The cardiomediastinal silhouette is unchanged. IMPRESSION: Stable exam. Signed by Eric Rashid MD 11/26/2016 03:51 P
--- NOTE | 2016-11-26 09:33 | RO ---
DATE OF PROCEDURE: 11/25/2016 PREOPERATIVE DIAGNOSIS: Shock. POSTOPERATIVE DIAGNOSIS: Shock with severe metabolic acidosis. PROCEDURE: Left femoral arterial line placement, emergent. SURGEON: Shkiha Beauchamp MD ABLE BODIED TANKERMAN: Dr. Soni Meraz ANESTHETIC: 1% local lidocaine. SEDATION: None. ESTIMATED BLOOD LOSS: 20-30 mL. DESCRIPTION OF PROCEDURE: Patient was placed in supine position. Left femoral area was cleaned with Chloraprep. Ultrasound guidance was done. Physician is aware of patient's coagulopathy, but given the emergent situation and potential of patient being disseminated intravascular coagulation (DIC), an underlying coagulopathy is not able to be performed, procedure had to be done. Physician is also aware of the deep venous thrombosis (DVT), but given that there is no radial pulse palpated on the upper extremities and the fingers all appearing to be dusky, therefore attempting of axilla arterial line carries considerable risk. A femoral line was attempted. Ultrasound guidance was used. 1% local lidocaine was injected. Needle was inserted. Bright red blood flashback was obtained. Subsequently, a wire was inserted. The needle was removed. Catheter was inserted over a guidewire. Wire was removed and tube was connected. Waveform was obtained. Confirmation of the arterial line was obtained via waveform. Dressing was placed. Pressure was placed and pressure dressing was placed as well. Patient tolerated the procedure with no complication other than bleeding and potential hematoma. Patient was in the process of getting transfused and was given cryoprecipitate precipitated and packed red blood cells (PRBC) for underlying coagulopathy. [facility]
[2016-11-26 10:18] LABS: ABG BASE EXCESS -4.9 (-2.0-2.0); ABG HCO3 14.8 MEQ/L (22.0-26.0); ABG PARTIAL PRESSURE O2 152.9 mmHg (75.0-100.0); ABG STANDARD HCO3 20.5 MEQ/L (22.0-26.0); ABG TOTAL CO2 15.3 MEQ/L (23.0-31.0); ABG pH (ARTERIAL) 7.581 UNITS (7.350-7.450)
[2016-11-26 10:28] LABS: ABG PARTIAL PRESSURE CO2 16.1 mmHg (35.0-45.0)
--- NOTE | 2016-11-26 10:35 | CCN ---
DATE: 11/26/2016 START TIME: 0814 hours STOP TIME: 0902 hours I again attended Stephanie Biswas. She remains intubated, sedated, and mechanically ventilated. I have spoken with her primary service this morning. In essence, she has been able to be weaned off the vasopressin. She still remains on low dose Levophed at 5 mcg. Central venous pressure is currently 10 this morning. She is making minimal urine. Chest x-ray shows lines and tubes in good position. Most recent arterial blood gas on a PVRC of 20, tidal volume of 300, PEEP of 5, FiO2 of 30% with respiratory rate in the 30s shows a pH of 7.577, PCO2 is 17.3, and PO2 is 138.7. Other laboratories show a white blood cell count of 18.2, hemoglobin 9.5, platelet count 85,000. No differential ordered this morning. Sodium 135, potassium 4.0, chloride 97, CO2 of 15, BUN 56, creatinine up to 2.52 , glucose 356. Her lactic acid has hovered between 9 and 11. Bilirubin is 2, transaminases much more elevated today with an AST of 3681 and ALT of 897. CK elevated at 2042, troponin borderline at 0.13. INR 1.91. She remains on meropenem. Ulcer and deep vein thrombosis (DVT) prophylaxis ordered through primary service. PHYSICAL EXAMINATION: She remains minimally responsive and tachypneic over the ventilator. Heart rate 90 to 110. She had an episode of atrial fibrillation last night. She remains in atrial fibrillation this morning. Blood pressure is variable. Levophed is back on at 5 mcg and her last blood pressure was 105 systolic. She is afebrile. Maximum temperature (t-max) 99.5. The remainder of her examination shows pupils are sluggish but reactive. She is generally pale in appearance. No obvious jugular venous distention (JVD). Trachea is midline. Chest shows her right subclavian triple lumen catheter and her right anterior chest tube. Air exchange is reasonable. No rubs, crackles or wheezes. Cardiac examination is irregularly irregular. Peripheral pulses are diminished. Abdomen remains quiet. Ascites are easily demonstrated. Extremities show persistent edema of the left lower extremity where she has her deep vein thrombosis (DVT). She has discoloration of fingers and toes. Neurologically, as outlined above. The most pressing problem requiring my presence at the bedside: 1. Respiratory failure requiring mechanical ventilation. 2. Profound metabolic acidosis, multifactorial. 3. Deep vein thrombosis (DVT)/pulmonary embolism. 4. Stage IV adenocarcinoma, unknown primary. 5. Underlying coronary artery disease. 6. Renal failure. 7. Coagulopathy. At this point, she remains overbreathing the ventilator, as she received bicarbonate yesterday. There is a considerable delay of equilibration of her cerebrospinal fluid pH with that of her peripheral blood. I believe that this is really what is driving this for her. Her bicarbonate was stopped this morning. She is not hypoxic. We will monitor this throughout the day. She is requiring less vasopressors at this point. They are continuing her current antimicrobials. I am told that the family is having a meeting later today to decide further intervention and consideration of comfort measures only. I still believe, especially in view of the appearance of her CT scan, her examination and her profound acidosis that most likely this is an intraabdominal ischemic event. In view of her advanced stage adenocarcinoma, unfortunately there is no surgical intervention for this. We will proceed as outlined above. Overall, she remains critically ill and her survival is unexpected. I left the bedside at 0902 hours. 48 minutes of critical care time delivered at the bedside, not including procedures. JUDY
--- NOTE | 2016-11-26 12:17 | PHACANCOPD ---
PHARMACY VANCOMYCIN DOSING Pt Demographics Demographics Patient Age:81 , Weight:58.500 , Gender: female Adjusted Body Weight Date: 11/26/16, Adjusted Body Weight: Kg Vancomycin Vancomycin indication: SEPSIS Vancomycin Target Ranges: 10-20 mcg/ml Vancomycin Load Y/N: Yes Load Dose Date Time Vancomycin Load Dose: 1250MG Date: 11/25/16 Time: 1600 Vancomycin Dose Date: 11/26/16. Current Vancomycin Dose: Intermittent Dosing?: Yes Labs Micro Microbiology 11/25/16 Blood Culture, Received Pending 11/25/16 Blood Culture - Preliminary, Resulted No growth after 24 hours . All specim... 11/25/16 Influenza Virus Type A Antigen - Final, Complete 11/25/16 Influenza Virus Type B Antigen - Final, Complete 11/25/16 Urine Culture, Received Pending Creatinine Clearance Date:11/26/16. Creatinine Clearance: . Assessment and Plan Maintaining Current Dose?: Yes Reason for dose change: No Dose Change Pharmacist Note Pharmacist Note Date: 11/26/16. Pharmacist note: I have scheduled a vancomycin trough level to be drawn today, 11/26/16 @1600 due to intermittent dosing given SHRUTHI. We will follow- up on this level when resulted and re-dose accordingly. [facility] Nov 26, 2016 12:17
--- NOTE | 2016-11-26 12:50 | ECGEPIP ---
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
--- NOTE | 2016-11-26 13:08 | IPNPDOC ---
Text Note Date of Service The patient was seen on 11/26/16. NOTE Subjective: Patient is an 81 year old female with a PMHx of HTN, DLP, CAD, Bladder CA, Esophageal CA with metastatic lesions (liver, abdomen, ascites) who presented to the ER with complaints of increased fatigue / sleepiness, confusion , and vomiting. She was found down by her . Patient was brought into the ER where she was found to have hypotension and a pneumothorax. She received IV fluid resuscitation, chest tube for pneumothorax and a central line was placed. Patient was taken to ICU where she began to experience hypoxia. She was intubated at that point and also received an arterial line. Patient was started on pressor support and continued with mechanical ventilation. Discussion with the about goals of care were initiated on 11/25/16 and he agreed that the patient should be DNR at this point. He and his close friend ( of and patient) advised us that he would speak with ict trainer to determine prior wishes. Patient was seen and examined today. Patient is currently intubated and sedated. The arrived at the bedside and produced us documentation showing that she is DNR / DNI. I have expressed to him that the patient's prognosis is very poor and that the likelihood of survival is low. He agreed that he did not want to have any further suffering and unneeded testing. At this point the patient will be made comfort measures. He noted that his son will be arriving at the bedside this evening and at which point we will do full comfort measures. Objective: Vitals (See below) General: Lying in bed, intubated and sedated HEENT: NC, AT, Pupils reactive CVS: Tachycardic, +S1S2 Lungs: Fair air entry b/l, -w/r/r Abdomen: Soft, Mild distension , NT, +BSx4 Extremities: +PPx4, Left leg swelling, Assessment: 1. Ventilator dependent respiratory failure 2. Severe shock - possibly 2/2 intra-abdominal etiology - possibly SBP, vs. pyelonephritis 3. Pulmonary embolism 2/2 Left lower extremity DVT 4. Atrial fibrillation with RVR 5. Coagulopathy - possibly consumptive etiology, possible DIC 6. Mixed acid base abnormality; Metabolic acidosis (Anion and Non-anion gap), Respiratory Alkalosis 7. Thrombocytopenia 8. Normocytic anemia / Acute blood loss anemia 9. Acute kidney injury 10. Hepatic ischemia 11. 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 CAD 13. HTN 14. DLP 15. History of bladder CA 16. GI prophylaxis 17. DVT prophylaxis Plan: - Patient has received IV fluid hydration and broad spectrum antibiotics ( Vancomycin and Meropenem) - Currently on mechanical ventilation under the care of pulmonary (Dr. 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5 L 11/25/16 22:16 Red Blood Count 3.64 L, Mean Corpuscular Volume 96.3 H, Mean Corpuscular Hemoglobin 31.1, Mean Corpuscular Hemoglobin Concent 32.3, Red Cell Distribution Width 14.6 H, Calcium Level 6.3 L 11/26/16 02:12 Calcium Level 6.3 L, Red Blood Count 2.75 L, Mean Corpuscular Volume 92.0, Mean Corpuscular Hemoglobin 30.6, Mean Corpuscular Hemoglobin Concent 33.2, Red Cell Distribution Width 15.1 H 11/26/16 05:40 Calcium Level 6.1 L, Red Blood Count 3.09 L, Mean Corpuscular Volume 90.5, Mean Corpuscular Hemoglobin 30.6, Mean Corpuscular Hemoglobin Concent 33.8, Red Cell Distribution Width 15.1 H, Aspartate Amino Transf (AST/SGOT) 3681 H, Alanine Aminotransferase (ALT/SGPT) 897 H, Alkaline Phosphatase 124 H, Total Bilirubin 2.0 #H, Total Protein 4.0 L, Albumin 2.2 #L Vital Signs Date Time Temp Pulse Resp B/P Pulse Ox O2 Delivery O2 Flow Rate FiO2 11/26/16 11:00 122 77/46 Ventilator 30 82/34 11/26/16 10:00 97 11/26/16 09:00 36 11/26/16 08:00 99.5 11/25/16 10:12 15 I&O- Last 24 Hours up to 6 AM 11/26/16 06:00 Intake Total 7851 ml Output Total 429 ml Balance 7422 ml BRIELLE OLIVER MD Nov 26, 2016 13:08
[2016-11-26 13:43] LABS: DIGOXIN LEVEL 6.9 NG/ML (0.5-2.0)
[2016-11-26] MEDS: SIMVASTATIN 20 MG TAB PO SCH (20:05)
[2016-11-26] MEDS ORDERED: SCOPOLAMINE 1.5 MG TRANSDERMAL TD PRN (23:45)
[2016-11-26] MEDS ORDERED: MORPHINE 2 MG/ML 1ML SYRINGE IV PRN (23:45)
[2016-11-26] MEDS ORDERED: LORazepam 1 MG TAB PO PRN (23:45)
--- NOTE | 2016-11-27 13:49 | DS.PDOC ---
Discharge Summary General Date of Admission Nov 25, 2016 at 13:36 Date of Discharge Nov 27, 2016 at 01:00 Attending Physician: BRIELLE OLIVER MD Specialist/Consultants Involve: Sridhar Curtis Discharge Summary PROCEDURES PERFORMED DURING STAY: 1. Chest tube insertion 2. Subclavian central line 3. Intubation 4. Femoral arterial line ADMITTING DIAGNOSES: 1. Ventilator dependent respiratory failure 2. Severe shock - possibly 2/2 intra-abdominal etiology - possibly SBP, vs. pyelonephritis 3. Pulmonary embolism 2/2 Left lower extremity DVT COMPLICATIONS/CHIEF COMPLAINT: Severe Sepsis HISTORY OF PRESENT ILLNESS: Patient is an 81 year old female with a PMHx of HTN, DLP, CAD, Bladder CA, Esophageal CA with metastatic lesions (liver, abdomen, ascites) who presented to the ER with complaints of increased fatigue / sleepiness, confusion , and vomiting. She was found down by her . Patient was brought into the ER where she was found to have hypotension and a pneumothorax. She received IV fluid resuscitation, chest tube for pneumothorax and a central line was placed. Patient was taken to ICU where she began to experience hypoxia. She was intubated at that point and also received an arterial line. Patient was started on pressor support and continued with mechanical ventilation. Discussion with the about goals of care were initiated on 11/25/16 and he agreed that the patient should be DNR at this point. He and his close friend ( of and patient) advised us that he would speak with gas station supervisor to determine prior wishes. Patient was seen and examined today. Patient is currently intubated and sedated. The arrived at the bedside and produced us documentation showing that she is DNR / DNI. I have expressed to him that the patient's prognosis is very poor and that the likelihood of survival is low. He agreed that he did not want to have any further suffering and unneeded testing. At this point the patient will be made comfort measures. He noted that his son will be arriving at the bedside this evening and at which point we will do full comfort measures. HOSPITAL COURSE: 1. Ventilator dependent respiratory failure 2. Severe shock - possibly 2/2 intra-abdominal etiology - possibly SBP, vs. pyelonephritis 3. Pulmonary embolism 2/2 Left lower extremity DVT 4. Atrial fibrillation with RVR 5. Coagulopathy - possibly consumptive etiology, possible DIC 6. Mixed acid base abnormality; Metabolic acidosis (Anion and Non-anion gap), Respiratory Alkalosis 7. Thrombocytopenia 8. Normocytic anemia / Acute blood loss anemia 9. Acute kidney injury 10. Hepatic ischemia 11. 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 CAD 13. HTN 14. DLP 15. History of bladder CA 16. GI prophylaxis 17. DVT prophylaxis Patient was initially admitted to ICU for IV fluid rescusitation, pressor supprot and broad spectrum antibiotics. She had been intubated to support ventilation. She received several blood products (10 units of cryoprecipitate, 2 units of PRBC or 2 units of FFP). 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 Vital Signs/I&Os Vital Signs Date Time Temp Pulse Resp B/P Pulse Ox O2 Delivery O2 Flow Rate FiO2 11/26/16 22:00 30 11/26/16 21:00 101.1 130 34 114/57 Ventilator 120/55 11/26/16 19:22 99 11/25/16 10:12 15 I&O- Last 24 Hours up to 6 AM 11/27/16 06:00 Intake Total 1697.3 ml Output Total 676 ml Balance 1021.3 ml Laboratory Data Labs 24H Laboratory Tests 2 11/26/16 18:05: Bedside Glucose (Misc Panel) 122H FSBS Laboratory Tests Test 11/26/16 18:05 Range/Units Bedside Glucose (Misc Panel) 122 83-110 MG/DL Microbiology Microbiology 11/25/16 Blood Culture - Preliminary, Resulted No Growth after 48 hours. All Specime... 11/25/16 Blood Culture - Preliminary, Resulted No Growth after 48 hours. All Specime... 11/25/16 Influenza Virus Type A Antigen - Final, Complete 11/25/16 Influenza Virus Type B Antigen - Final, Complete 11/25/16 Urine Culture - Final, Complete Escherichia Coli Discharge Medications Scheduled (Prempro 0.625-2.5 mg) 1 Tab Tab 1 TAB PO 2XWK (Reported) STATES SHE FORGETS A LOT, COULD NOT TELL ME WHAT DAYS SHE TAKES THIS ON Ascorbic Acid (Vitamin C) 500 Mg Tab 500 MG PO DAILY (Reported) Aspirin (Aspirin 81) 81 Mg Tab 81 MG PO DAILY (Reported) Calcium/Vitamin D (Calcium 600 + D 600-400 mg-Unit) 1 Tab Tab 1 TAB PO DAILY ( Reported) Metoprolol Tartrate (Metoprolol Tartrate) 25 Mg Tab 25 MG PO BID (Reported) Multivitamins *[facility] STOCKED* (Thera M Plus *[facility] STOCKED*) 1 Tab Tab 1 TAB PO DAILY (Reported) Simvastatin (Simvastatin) 20 Mg Tab 20 MG PO QHS (Reported) Scheduled PRN Nitroglycerin (Nitroglycerin) 0.4 Mg Sub 0.4 MG SL NITRO PRN PRN CHEST PAIN ( Reported) Omeprazole (Omeprazole) 20 Mg Cap 20 MG PO DAILY PRN PRN HEARTBURN (Reported) Tramadol HCl (Tramadol HCl) 50 Mg Tab 50 MG PO Q4HP PRN PRN PAIN (Reported) Allergies Coded Allergies: Cephalosporins (Verified Allergy, Intermediate, HIVES, 12/27/12) BRIELLE OLIVER MD Nov 27, 2016 13:49
== END 2016-11-27 01:00 | disposition expired | DRG 871 ==
LOC: EDBD 09:24 → M ED 12:07 → M ED INP 13:36 → M ICU 14:47
PROVIDERS: ADMIT Internal Medicine; ATTEND Internal Medicine
PROC: 30233K1 Transfusion of Nonautologous Frozen Plasma into Peripheral Vein, Percutaneous Approach (ICD-10-PCS; principal; 2016-11-25)
PROC: 30233N1 Transfusion of Nonautologous Red Blood Cells into Peripheral Vein, Percutaneous Approach (ICD-10-PCS; 2016-11-25)
PROC: 30233M1 Transfusion of Nonautologous Plasma Cryoprecipitate into Peripheral Vein, Percutaneous Approach (ICD-10-PCS; 2016-11-25)
PROC: 0W9930Z Drainage of Right Pleural Cavity with Drainage Device, Percutaneous Approach (ICD-10-PCS; 2016-11-25)
PROC: 02H633Z Insertion of Infusion Device into Right Atrium, Percutaneous Approach (ICD-10-PCS; 2016-11-25)
PROC: 5A1945Z Respiratory Ventilation, 24-96 Consecutive Hours (ICD-10-PCS; 2016-11-25)
PROC: 04HL33Z Insertion of Infusion Device into Left Femoral Artery, Percutaneous Approach (ICD-10-PCS; 2016-11-25)
DX: A41.9 Sepsis, unspecified organism (principal); I26.99 Other pulmonary embolism without acute cor pulmonale; D65 Disseminated intravascular coagulation [defibrination syndrome]; J96.01 Acute respiratory failure with hypoxia; R65.21 Severe sepsis with septic shock; K65.2 Spontaneous bacterial peritonitis; E87.2 Acidosis; N11.9 Chronic tubulo-interstitial nephritis, unspecified; C15.9 Malignant neoplasm of esophagus, unspecified; C78.7 Secondary malignant neoplasm of liver and intrahepatic bile duct; N17.9 Acute kidney failure, unspecified; E87.3 Alkalosis; C79.89 Secondary malignant neoplasm of other specified sites; I82.432 Acute embolism and thrombosis of left popliteal vein; I82.412 Acute embolism and thrombosis of left femoral vein; D62 Acute posthemorrhagic anemia; Z66 Do not resuscitate; E78.5 Hyperlipidemia, unspecified; I10 Essential (primary) hypertension; I25.10 Atherosclerotic heart disease of native coronary artery without angina pectoris; I48.91 Unspecified atrial fibrillation; B96.20 Unspecified Escherichia coli [E. coli] as the cause of diseases classified elsewhere; Z51.5 Encounter for palliative care; Z79.82 Long term (current) use of aspirin; Z79.899 Other long term (current) drug therapy; Z88.1 Allergy status to other antibiotic agents; Z95.1 Presence of aortocoronary bypass graft; Z87.891 Personal history of nicotine dependence; Z85.828 Personal history of other malignant neoplasm of skin; Z85.51 Personal history of malignant neoplasm of bladder